=== PATIENT | female | born 1975 | race Caucasian/White ===

== ENCOUNTER 2016-09-13 08:14 | Outpatient (CLI) | payer OTHER ==
[~2016-09-13 08:14] MED LIST: ALBUTEROL HFA60 DOSE IN; PRILOSEC20 MG PO; VITAMIN D1000 UNIT PO
--- NOTE | 2016-09-13 10:42 | DIAGNOSTIC IMAGING REPORT ---
PROCEDURE: MR BRAIN WITHOUT CONTRAST INDICATION: INTRACTABLE FARRIS TECHNIQUE: Multiplanar multisequence MRI imaging of the brain without contrast. COMPARISON: None. FINDINGS: The midline structures are normally formed. The ventricular system is normal in size. Basal cisterns are patent. Flow voids in the major intracranial vessels are normal. Signal throughout the prado and white matter is normal. No restricted diffusion to suggest acute ischemia. No evidence of acute or chronic intraparenchymal or extra-axial hemorrhage. No mass, mass effect, or midline shift. Normal signal in the visible bones. The sinuses are normally aerated. Visible extracranial soft tissues including the orbits are normal. IMPRESSION: 1. Normal MRI of the brain.
== END 2016-09-13 23:00 ==
LOC: MRI SRH 08:14
DX: R51 Headache (principal)